=== PATIENT | female | born 2000 | race Caucasian/White ===

== ENCOUNTER 2023-09-28 19:12 | Emergency (ER) | payer OTHER ==
[~2023-09-28] VITALS: Ht 157.5 cm; Wt 74.0 kg
[2023-09-28 19:58] VITALS: O2SAT 97
[2023-09-28 22:59] LABS: BASOPHILS % 0.3 % (0.0-2.0); DIFFERENTIAL COMMENT 0; EOSINOPHILS % 1.1 % (0.0-5.0); HEMATOCRIT. 25.6 % (36.0-48.0); HEMOGLOBIN. 8.1 g/dL (12.0-16.0); LYMPHOCYTES % 7.2 % (20.0-50.0); MEAN CORPUSCULAR HEMOGLOBIN 22.7 pg (28.0-32.0); MEAN CORPUSCULAR HGB CONC 31.7 g/dL (31.0-37.0); MEAN CORPUSCULAR VOLUME 71.6 fL (81.0-99.0); MEAN PLATELET VOLUME 6.6 fl (7.4-10.4); MONOCYTES % 4.2 % (2.0-8.0); NEUTROPHILS % 87.2 % (40.0-76.0); PLATELET 301 x1000/uL (130-400); RED BLOOD CELL COUNT 3.58 mill/uL (4.2-5.4); RED CELL DISTRIBUTION WIDTH 18.6 % (11.6-14.6); WHITE BLOOD COUNT 12.8 x1000/uL (4.5-11.0)
[2023-09-28 23:15] LABS: ALANINE AMINOTRANSFERASE 22 IU/L (10-49); ALBUMIN 4.3 g/dL (3.2-4.8); ASPARTATE AMINOTRANSFERASE 24 IU/L (<34); BILIRUBIN TOTAL 0.5 mg/dL (0.1-1.0); CALCIUM 8.8 mg/dL (8.7-10.4); CARBON DIOXIDE 21 mEq/L (21-32); CHLORIDE 105 mEq/L (98-107); CREATININE 0.5 mg/dL (0.6-1.0); GLUCOSE 84 mg/dL (70-105); POTASSIUM 3.7 mEq/L (3.5-5.1); PROTEIN TOTAL 6.8 g/dL (6.0-8.3); SODIUM 137 mEq/L (136-145); UREA NITROGEN BLOOD 8 mg/dL (9-23)
[2023-09-28] MEDS: SODIUM CHLORIDE 0.9% 1000ML BAG (SEPSIS BOLUS) IV ONE (23:15)
[2023-09-28] MEDS: CEFTRIAXONE 1GM PREMIX 50 ML IV ONE (23:15)
[2023-09-29] MEDS ORDERED: ACET-2708 MT (00:29)
[2023-09-29] MEDS ORDERED: CEPH500C2 MT (00:29)
[2023-09-29 00:44] VITALS: BP 122/79; PULSE 96; RESP 19; TEMP 99.6
== END 2023-09-29 04:37 | disposition home or self-care (01) ==
LOC: ER 19:12
DX: N61.0 Mastitis without abscess (principal); D64.9 Anemia, unspecified; Z98.890 Other specified postprocedural states
CPT/HCPCS: 99285; 96365; 80053; 83605; 85025; 87040; 36415; 76642; J0696; J7030